=== PATIENT | male | born 1975 | race Caucasian/White ===

== ENCOUNTER 2019-02-03 20:00 | Emergency (ER) | payer MEDICARE, MEDICAID ==
[2019-02-03] MEDS ORDERED: ASPIRIN 81 MG TABLET, CHEWABLE PO ONE (21:43)
--- NOTE | 2019-02-03 22:26 | RADIOLOGY REPORT (SQ) ---
EXAM DESCRIPTION: XR CHEST 1 VIEW COMPLETED DATE/TME: 02/03/2019 21:43 CLINICAL HISTORY: 44 years, Male, cp COMPARISON: None. NUMBER OF VIEWS: 1 TECHNIQUE: Portable chest LIMITATIONS: None. FINDINGS: Heart size is normal. Elevation of the right hemidiaphragm with subsegmental atelectasis right lung base. No pneumothorax. Lungs are otherwise clear IMPRESSION: Subsegmental atelectasis right lung base. Elevation right hemidiaphragm copyright 2010 [employer]- All Rights Reserved
[2019-02-03 22:53] LABS: HEMATOCRIT 37.1 % (37.9-51.0); HEMOGLOBIN 12.4 g/dL (13.5-17.0); MEAN CORPUSCULAR HEMOGLOBIN 31.5 pg (27.0-33.4); MEAN CORPUSCULAR HGB CONC 33.5 g/dL (32.0-36.0); MEAN CORPUSCULAR VOLUME 94 fl (80-97); RED BLOOD COUNT 3.95 10^6/uL (4.35-5.55); RED CELL DISTRIBUTION WIDTH 16.1 % (11.5-14.0); WHITE BLOOD COUNT 7.8 10^3/uL (4.0-10.5)
[2019-02-03 22:55] LABS: INTERNATIONAL RATION (INR) 0.87; PLATELET COUNT 74 10^3/uL (150-450); PROTHROMBIN TIME 12.3 SEC (11.4-15.4)
[2019-02-03 23:14] LABS: ALANINE AMINOTRANSFERASE 75 U/L (21-72); ALBUMIN 4.6 g/dL (3.5-5.0); ALKALINE PHOSPHATASE 116 U/L (38-126); ANION GAP 11 (5-19); ASPARTATE AMINO TRANSFERASE 101 U/L (17-59); BILIRUBIN,DIRECT 0.2 mg/dL (0.0-0.4); BILIRUBIN,TOTAL 0.7 mg/dL (0.2-1.3); BLOOD UREA NITROGEN 12 mg/dL (7-20); CALCIUM 9.7 mg/dL (8.4-10.2); CARBON DIOXIDE 30 mmol/L (22-30); CHLORIDE 96 mmol/L (98-107); CREATINE KINASE 126 U/L (55-170); GLUCOSE 211 mg/dL (75-110); POTASSIUM 4.2 mmol/L (3.6-5.0); SODIUM 136.9 mmol/L (137-145); TOTAL PROTEIN 7.7 g/dL (6.3-8.2)
[2019-02-03 23:15] LABS: ABSOLUTE LYMPHOCYTES# (MANUAL) 2.2 10^3/uL (0.5-4.7); ABSOLUTE MONOCYTES # (MANUAL) 0.5 10^3/uL (0.1-1.4); ABSOLUTE NEUTROPHILS# (MANUAL) 3.8 10^3/uL (1.7-8.2); BASOPHILS % (MANUAL) 2 % (0-2); EOSINOPHILS % (MANUAL) 15 % (0-6); LYMPHOCYTES % (MANUAL) 28 % (13-45); MONOCYTES % (MANUAL) 6 % (3-13); SEGMENTED NEUTROPHILS % (MAN) 49 % (42-78); TOTAL CELLS COUNTED 100
[2019-02-03 23:16] LABS: ANISOCYTOSIS 1+; PLATELET COMMENT DECREASED; POIKILOCYTOSIS SLIGHT; TOXIC GRANULATION SLIGHT
[2019-02-03] MEDS ORDERED: LIDOCAINE 2% VISCOUS SOLN 20 ML UDCUP PO ONE (23:23)
[2019-02-03] MEDS ORDERED: METOCLOPRAMIDE HCL ORAL SOLN 10 MG/10 ML UDCUP PO ONE (23:23)
[2019-02-03] MEDS ORDERED: MAG HYDROX/AL HYDROX/SIMETH SUSP 30 ML UDCUP PO ONE (23:23)
[2019-02-03] MEDS ORDERED: IBUPROFEN 800 MG TABLET PO ONE (23:23)
[2019-02-03 23:25] LABS: CREATINE KINASE MB 0.98 ng/mL (<4.55)
[2019-02-03 23:26] LABS: TROPONIN I < 0.012 ng/mL
--- NOTE | 2019-02-04 02:48 | ER Document Report ---
ED General - General Chief Complaint: Chest Pain Stated Complaint: ALLERGIC REACTION Time Seen by Provider: 02/03/19 21:42 Notes: Patient is a 44-year-old male presents to the emergency department chief complaint chest pain in the center of his chest that radiates to his left shoulder started around 1700 of this hours when he was sitting in group therapy. Patient is a patient of [facility]. States has had intermittent chest pain today but started to be constant around 1700 hrs. States that the pain increases upon deep palpation and movement, as well as deep inspiration. Patient states he does have a history of hypertension, hyperlipidemia, DM he is unsure of the medications that he takes. Patient's denying history of smoking. Medications were obtained from transfer list. Lipitor, Cogentin, Lexapro, Neurontin, HCTZ, glipizide, lisinopril, metformin, Protonix, Risperdal, trazodone TRAVEL OUTSIDE OF THE [place] IN LAST 30 DAYS: No - Related Data Allergies/Adverse Reactions: No Known Allergies Allergy (Unverified 02/03/19 20:38) Past Medical History - General Information source: Patient, Transfer Record - Social History Smoking Status: Unknown if Ever Smoked Family History: Reviewed & Not Pertinent Patient has suicidal ideation: No Patient has homicidal ideation: No - Past Medical History Cardiac Medical History: Reports: Hx Hypertension Renal/ Medical History: Denies: Hx Peritoneal Dialysis Review of Systems - Review of Systems Constitutional: No symptoms reported EENT: No symptoms reported Cardiovascular: See HPI Respiratory: No symptoms reported Gastrointestinal: No symptoms reported Genitourinary: No symptoms reported Male Genitourinary: No symptoms reported Musculoskeletal: See HPI Skin: No symptoms reported Hematologic/Lymphatic: No symptoms reported Neurological/Psychological: See HPI Physical Exam - Vital signs Vitals: Temp Pulse Resp BP Pulse Ox 97.7 F 92 16 124/85 98 02/03/19 20:12 02/03/19 20:12 02/03/19 20:12 02/03/19 20:12 02/03/19 20:12 - Notes Notes: GENERAL: Alert, interacts well. No acute distress. HEAD: Normocephalic, atraumatic. EYES: Pupils equal, round, and reactive to light. Extraocular movements intact. ENT: Oral mucosa moist, tongue midline. NECK: Full range of motion. Supple. Trachea midline. LUNGS: Clear to auscultation bilaterally, no wheezes, rales, or rhonchi. No respiratory distress. Chest: No crepitus felt, no erythema or ecchymosis noted. HEART: Regular rate and rhythm. No murmur ABDOMEN: Soft, non-tender. Non-distended. Bowel sounds present in all 4 quadrants. EXTREMITIES: Moves all 4 extremities spontaneously. No edema, normal radial and dorsalis pedis pulses bilaterally. No cyanosis. BACK: no cervical, thoracic, lumbar midline tenderness. No saddle anesthesia, normal distal neurovascular exam. NEUROLOGICAL: Alert and oriented x3. Normal speech. cranial nerves II through XII grossly intact PSYCH: Normal affect, normal mood. SKIN: Warm, dry, normal turgor. No rashes or lesions noted. Course - Re-evaluation Re-evalutation: Patient's EKG shows sinus rhythm rate of 96, QTc 465, no ST segment elevations or depressions noted. Patient has had negative delta troponins in the emergency room., Chest x-ray shows no signs of pneumonia, pneumothorax, rib fractures. Patient has been sleeping in no apparent distress. Due to patient's chest pain being reproducible upon deep palpation and having a generalized heart score of 2 with negative delta troponins I feel that it is safe for the patient be discharged home with close follow-up. Discussed this with patient at bedside as well as of [facility] staff. Patient stable for discharge. - Vital Signs Vital signs: Temp Pulse Resp BP Pulse Ox 97.7 F 92 16 124/85 98 02/03/19 20:12 02/03/19 20:12 02/03/19 20:12 02/03/19 20:12 02/03/19 20:12 - Laboratory Result Diagrams: 02/03/19 22:37 02/03/19 22:37 Laboratory results interpreted by me: 02/03/19 02/03/19 22:37 22:37 RBC 3.95 L Hgb 12.4 L Hct 37.1 L RDW 16.1 H Plt Count 74 L Eosinophils % (Manual) 15 H Absolute Eos (Manual) 1.2 H Sodium 136.9 L Chloride 96 L Glucose 211 H AST 101 H ALT 75 H Discharge - Discharge Clinical Impression: Chest pain Qualifiers: Chest pain type: unspecified Qualified Code(s): R07.9 - Chest pain, unspecified Condition: Stable Disposition: HOME, SELF-CARE Instructions: Chest Pain of Unclear Cause ([facility]) Additional Instructions: As we discussed you have been seen and treated in the emergency department for your generalized chest pain. The test we have done show that your heart is not the cause of your chest pain. Please make sure you follow-up with your primary care provider in the next 24-48 hours. Is also return to the emergency room should you have any other concerning symptoms.
[2019-02-04 03:46] VITALS: BP 127/79
--- NOTE | 2019-02-04 12:34 | EKG REPORT ---
SEVERITY:- BORDERLINE ECG - SINUS RHYTHM BORDERLINE T ABNORMALITIES, INFERIOR LEADS : Confirmed by: Angela Hudson MD 04-Feb-2019 12:34:09
== END 2019-02-04 03:18 | disposition home or self-care (01) ==
LOC: ER 20:00
DX: R07.9 Chest pain, unspecified (principal); I10 Essential (primary) hypertension; E78.5 Hyperlipidemia, unspecified; Z79.899 Other long term (current) drug therapy; E11.9 Type 2 diabetes mellitus without complications; Z79.84 Long term (current) use of oral hypoglycemic drugs
CPT/HCPCS: 93005; 99285; 36415; 82553; 82550; 85025; 85610; 80053; 84484; 71045; 93010; A9270 ×3; J3490